=== PATIENT | male | born 1955 | race Caucasian/White ===

== ENCOUNTER → 2018-05-28 | Outpatient (CLI) | payer MEDICARE, OTHER ==
[~2018-05-28] MED LIST: ADULT LOW DOSE81 MG PO; DILTIAZEM 24HR240 MG PO; MEN'S 50+ ADVA1 EACH PO; NOHOMEMEDICATIONS; PREVACID30 M1 PO
== END ==
LOC: M.ULTRA 10:28
DX: R79.89 Other specified abnormal findings of blood chemistry (principal); R19.8 Other specified symptoms and signs involving the digestive system and abdomen

== ENCOUNTER 2020-06-22 11:30 | Observation (INO) | payer MEDICARE, OTHER ==
[~2020-06-22] VITALS: Ht 182.9 cm; Wt 106.6 kg
[2020-06-22] VITALS (17 sets, daily range): BP systolic 128–163; BP diastolic 46–82
[2020-06-22 12:13] LABS: HEMATOCRIT 44.6 % (42.0-52.0); HEMOGLOBIN 14.8 gm/dL (14.0-18.0); MCHC 33.3 g/dL (28.0-37.0); MCV 96.1 fL (80.0-100.0); RBC 4.64 mil/uL (4.50-6.00); RDW-CV 13.7 % (10.5-14.5)
[2020-06-22 12:23] LABS: ANION GAP 6 mmol/L (7-16); BUN 14 mg/dL (7-18); CHLORIDE 102 mmol/L (98-107); CO2 29 mmol/L (21-32); GLUCOSE 96 mg/dL (70-99); POTASSIUM 4.5 mmol/L (3.5-5.1); SODIUM 137 mmol/L (136-145)
[2020-06-22 12:26] LABS: APTT 25.4 Seconds (25.0-31.3); PROTIME 10.3 Seconds (9.20-11.50)
[2020-06-22 12:27] LABS: ALBUMIN 3.9 g/dL (3.4-5.0); ALKALINE PHOSPHATASE 64 U/L (46-116); CHOLESTEROL 183 mg/dL (<200); HDL CHOLESTEROL 52 mg/dL (>40); LDL CHOLESTEROL 111 mg/dL (<100); SGOT 30 U/L (15-37); SGPT 60 U/L (30-65); TC:HDL 3.5 Ratio (Not establshd); TOTAL BILIRUBIN 0.5 mg/dL (<0.1-1.0); TOTAL PROTEIN 7.7 g/dL (6.4-8.2); TRIGLYCERIDE 104 mg/dL (<150); VLDL 21 mg/dL (<40)
[2020-06-22 12:28] LABS: SERUM ASSESSMENT Clear
[2020-06-22] MEDS ORDERED: FLECAINIDE ACET50 M2 PO (12:56)
[2020-06-22] MEDS ORDERED: ZOCOR 10 MG TAB10 MG PO (12:57)
[2020-06-22] MEDS ORDERED: SYNTHROID100 MC1 PO (12:57)
[2020-06-22] MEDS ORDERED: FLOMAX0.4 MG PO (12:58)
[2020-06-22] MEDS ORDERED: MULTIPLE VITAM1 EAC2 PO (12:59)
[2020-06-22] MEDS ORDERED: VERAPAMIL ER120 MG PO (12:59)
--- NOTE | 2020-06-22 14:03 | EKG ---
[place] [address] ELECTROCARDIOGRAM REPORT Name: SNOW WILLIAM Room: [address] M.R.#: [id number] Admission: 06/22/20 Attend Phys: Charles Pitt, Discharge: Date of : 51 Date of Service: 06/22/20 1210 Report #: [id number] THIS REPORT FOR: //name// [facility] Test Date: 2020-06-22 Test Time: 12:10:07 Pat Name: SNOW WILLIAM Department: Room: [facility] Gender: M Consumer Advocate: HENRIK : 1955 Requested By: Charles Pitt Order Number: [id number] Keith MD: Charles Pitt Measurements Intervals [place] Rate: 56 P: 48 ME: 175 QRS: 31 QRSD: 102 T: 28 QT: 449 QTc: 434 Interpretive Statements Sinus rhythm RSR' in V1 or V2, right VCD or RVH Compared to ECG 11/12/2009 15:21:47 Right ventricular hypertrophy now present RSR' in V1 or V2 now present Sinus bradycardia no longer present Electronically Signed On 06-22-2020 14:03:05 SOCIAL SCIENCES PROFESSOR by Charles Pitt [email or web address] <ELECTRONICALLY SIGNED> By: Charles Pitt MD, FACC 06/22/20 1403 1210 1210 Charles Pitt MD, FAC /EPI
--- NOTE | 2020-06-22 16:45 | NUR ---
PT TRANSFERRED FROM COASTAL/HARBOR DEFENSE OFFICER TO ROOM 218 POST STENT X2 THROUGH RIGHT GROIN OUTPATIENT VIA CART. STENTS PLACED IN RCA AND CIRC (2).PT IS ALERT,ABLE TO ANSWER QUESTIONS APPROPRIATELY.DENIES PAIN. VSS WITH ELEVATED BP ON RA. TELE SHOWS SR. SITE TO RIGHT GROIN SOFT,PINK AND WARM TO TOUCH.DRESSING CDI.ASSESSMENT CHARTED. PT EDUCATED ON ACTIVITY,DIET AND CALL LIGHT USE. NOTHING FURTHER AT THIS TIME.CLWR.WCTM
[2020-06-23] VITALS: BP 136/61
--- NOTE | 2020-06-23 03:52 | NUR ---
ASSUMED PT CARE AT [facility]PROX. 1945. PT IS POST PCI CATH. PT HAD TWO STENTS PLACED THROUGH RIGHT GROIN. SITE TO RIGHT GROIN IS SOFT, PINK, AND WARM. SMALL BRUISING NOTED AND IS APPROX. 2MM. PT DENIES C/O AT THIS TIME. DRESSING IS CLEAN, DRY, AND INTACT. VSS. PT IS A/OX4, UP ADLIB WITH BATHROOM PRIVILAGES. PT IS ON TELE MONITOR WHICH REVEALS NSR. PT HAS AN IV IN THE LAC WITH NS FLUIDS RUNNING. PT RESTED DURING THE NIGHT. NO C/O VOICED.
[2020-06-23 03:53] LABS: HEMATOCRIT 41.4 % (42.0-52.0); HEMOGLOBIN 13.9 gm/dL (14.0-18.0); MCHC 33.6 g/dL (28.0-37.0); MCV 95.2 fL (80.0-100.0); MPV 6.9 fl. (7.2-11.1); RBC 4.35 mil/uL (4.50-6.00); RDW-CV 13.8 % (10.5-14.5)
[2020-06-23 04:00] VITALS: BP 188/66
[2020-06-23 04:16] LABS: CALCIUM 8.5 mg/dL (8.5-10.1); POTASSIUM 4.3 mmol/L (3.5-5.1); TROPONIN-I LEVEL 0.14 ng/mL (<0.06)
[2020-06-23 07:30] VITALS: BP 133/67
--- NOTE | 2020-06-23 08:39 | H ---
[facility] [address] [place] [address] HISTORY AND PHYSICAL Name: SNOW WILLIAM Room: [address] Neelima Moreno#: [id number] Admission: 06/22/20 Attend Phys: Charles Pitt MD Discharge: Date of : 51 Report #: [id number] THIS REPORT FOR: cc: Lety Stuart MD, Katrina MD ~ Charles Pitt MD [facility] DATE OF SERVICE: 06/22/2020 INDICATION: Chest pain and abnormal stress test. HISTORY OF PRESENT ILLNESS: The patient is a very pleasant 65-year-old gentleman with history of paroxysmal atrial fibrillation. More recently, he has been having some midsternal and left upper chest discomfort intermittently. A stress test was ordered to evaluate and showed evidence of inferior wall ischemia. He does have preserved left ventricular systolic function. Cardiac risk factors include hyperlipidemia. PAST MEDICAL HISTORY: 1. Paroxysmal atrial fibrillation. 2. Hyperlipidemia. 3. Hypothyroidism. 4. Remote history of finger laceration repair. FAMILY HISTORY: Positive for coronary artery disease in both mother and father. SOCIAL HISTORY: The patient quit smoking remotely. Drinks alcohol occasionally. ALLERGIES: PENICILLIN. HOME MEDICATIONS: Aspirin 81 mg daily, Synthroid 50 mcg daily, multivitamin 1 tablet daily, Zocor 10 mg daily, Flomax 0.4 mg daily, verapamil 120 mg daily. Flecainide 50 mg b.i.d. REVIEW OF SYSTEMS: A 14-point review of systems is positive for fatigue, chest discomfort as outlined above, dyspnea on exertion without orthopnea or paroxysmal nocturnal dyspnea. No bleeding problems. Otherwise, 14-point review of systems unremarkable. PHYSICAL EXAMINATION: VITAL SIGNS: Stable. Blood pressure 124/68, pulse is 60 and regular. GENERAL: This is a pleasant gentleman in no distress. Mood and affect appropriate. HEENT: Extraocular muscles are intact. Mucous membranes are moist. NECK: Shows no jugular venous distention. [place] [address] HISTORY AND PHYSICAL Name: SNOW WILLIAM Room: [address] M.R.#: [id number] Admission: 06/22/20 Attend Phys: Charles Pitt MD Discharge: Date of : 51 Report #: [id number] CHEST: Reveals clear lung madera without wheezes or rales. CARDIOVASCULAR: Reveals a regular rhythm without gallop or murmur. ABDOMEN: Reveals normal bowel sounds. The abdomen is soft and nontender. EXTREMITIES: Shows no edema. Peripheral pulses are 2+ and easily palpable. IMPRESSION AND RECOMMENDATIONS: 1. Chest discomfort concerning for angina with stress testing that suggests inferior wall ischemia. We will proceed with coronary angiography and possible intervention. 2. Dyslipidemia. Recommend goal LDL of 70 or less. 3. Hypothyroidism. Continue replacement as outlined above. <ELECTRONICALLY SIGNED> By: Charles Pitt MD, [facility] 06/23/20 0839 1210 1224Summit Campusgwyn Pitt MD, FACC /nt
--- NOTE | 2020-06-23 09:10 | NUR ---
CM SPOKE TO THE PT TO DISCUSS CM ASSESSMENT. PT A&O, INDEPENDENT WITH ADL'S, ACTIVE AND DRIVES. PT USES 0 DME. PT HAS 0 HX OF HH OR SNF. NO CM D/C PLANNING NEEDS ANTICIPATED. CM WILL REMAIN AVAILABLE TO ASSIST AND FOLLOW NEEDED.
[2020-06-23] MEDS ORDERED: EFFIENT10 MG PO (09:11)
[2020-06-23] MEDS ORDERED: NITROGLYCERIN0.4 MG SUBLING (09:11)
[2020-06-23] MEDS ORDERED: LIPITOR10 MG PO (09:11)
--- NOTE | 2020-06-23 09:59 | EKG ---
[place] [address] ELECTROCARDIOGRAM REPORT Name: SNOW WILLIAM Room: [address] M.R.#: [id number] Admission: 06/22/20 Attend Phys: Charles Pitt, Discharge: Date of : 51 Date of Service: 06/23/20906 Report #: [id number] THIS REPORT FOR: //name// [facility] Test Date: 2020-06-23 Test Time: 09:07:02 Pat Name: SNOW WILLIAM Department: Room: [address] Gender: M Test Administrator: CS : 1955 Requested By: Snow Mckeon Order Number: [id number] Keith MD: Snow Mckeon Measurements Intervals [place] Rate: 67 P: 45 [place]: 160 QRS: 16 QRSD: 104 T: 42 QT: 403 QTc: 426 Interpretive Statements Sinus rhythm RSR' in V1 or V2, right VCD or RVH Compared to ECG 06/22/2020 12:10:07 No significant changes Electronically Signed On 06-23-2020 9:59:36 STORAGE RECEIPT POSTER by Snow Mckeon [email or web address] <ELECTRONICALLY SIGNED> By: Snow Mckeon MD, [facility] 06/23/20 0959 6 6 Snow Mckeon MD, [facility] /EPI
[2020-06-23 11:26] VITALS: BP 133/67
[2020-06-23 11:41] VITALS: BP 133/67
--- NOTE | 2020-06-23 15:27 | EKG ---
[place] [address] ELECTROCARDIOGRAM REPORT Name: SNOW WILLIAM Room: [address]R.#: [id number] Admission: 06/22/20 Attend Phys: Charles Pitt, Discharge: 06/23/20 Date of : 51 Date of Service: 06/22/20 1643 Report #: [id number] THIS REPORT FOR: //name// [facility] Test Date: 2020-06-22 Test Time: 16:43:50 Pat Name: SNOW WILLIAM Department: Room: [address] Gender: M Buggy Driver: ATHOMPSONJessica : 1955 Requested By: Charles Pitt Order Number: [id number] Keith MD: Snow Mckeon Measurements Intervals [place] Rate: 57 P: 36 [place]: 178 QRS: 6 QRSD: 118 T: 23 QT: 445 QTc: 434 Interpretive Statements Sinus rhythm Incomplete right bundle branch block Compared to ECG 06/22/2020 12:10:07 no change Electronically Signed On 06-23-2020 15:27:13 WOOD BOATBUILDER by Snow Mckeon [email or web address] <ELECTRONICALLY SIGNED> By: Snow Mckeon MD, [facility] 06/23/20 1527 1643 1643 Snow Mckeon MD, [facility] /EPI
--- NOTE | 2020-06-24 14:27 | CARD ---
[address] [address] CARDIAC CATH REPORT Name: SNOW WILLIAM Room: [address] Neelima Moreno#: [id number] Admission: 06/22/20 Attend Phys: Charles Pitt MD Discharge: 06/23/20 Date of : 51 Report #: [id number] THIS REPORT FOR: cc: Lety Stuart MD, Katrina MD ~ Snow Mckeon MD [facility] APPROVED REPORT Study performed: 06/22/2020 12:38:01 Patient Details Patient Status: Out-Patient Room #: The patient is a 65 year-old male Event Personnel Julio Verdugo RTR Monitor, Ashlee Lambert RTR Scrub, Shin Whitfield RN RN, Charles Pitt Bed Placement Coordinator, Snow Mckeon Heating Fixture Tender Procedures Performed Left Heart Cath w/or w/o Coronaries LHC, LIYA Place w/wo Plasty Single RCA , LIYA Place w/wo Plasty Single CIRC , Hemostasis w/ Angioseal Indication Arrhythmia, Positive stress test, Chest pain Risk Factors Hypercholesterolemia, Hypertension Admission/Lab Medications/Medications given during procedure Glycoprotein IllbIlla Inhibitors, Heparin Unfract., Fentanyl IV 50 mcg, Midazolam (Versed) IV 2 mg, Lidocaine Subcut 20 ml, Heparin IA 7000 units, Aggrastat Unknown 10.7 ml, Heparin IV 2000 units, Effient PO 60 mg Procedure Narrative The patient was brought electively to the Cardiac Catheterization Laboratory and was prepped and draped in a sterile manner. The right femoral was infiltrated with 2% Lidocaine subcutaneous anesthesia. A Hubbell 6 FR sheath was inserted into the right femoral artery. Coronary angiography was performed using coronary diagnostic catheters. The right coronary system [place] [address] CARDIAC CATH REPORT Name: SNOW WILLIAM Room: [address] Tiffanie#: [id number] Admission: 06/22/20 Attend Phys: Charles Pitt MD Discharge: 06/23/20 Date of : 51 Report #: [id number] a Diagnostic JR4 6Fr catheter. The left coronary system was accessed and visualized with a Diagnostic JL4 6Fr catheter. The left ventricle was accessed and visualized with a Diagnostic Pigtail 6Fr catheter. Left ventricular/Aortic Valve gradient assessed via catheter pullback. Left ventriculogram was performed in SWAIN projection. Closure device was deployed with a 6 Fr Angioseal. The patient tolerated the procedure well and there were no complications associated with the procedure. There was no hematoma. Intraoperative Conscious Sedation Sedation start time: 13:08 Case end Time: 14:13 Fentanyl 50 mcg Versed 2 mg Fluoro Time: 7.1 minutes Dose: DAP 867299 cGycm2 1880 mGy Contrast Type and Amount: Visipaque 210 ml Diagnostic Cath Left Main The left main coronary artery is normal and bifurcates into a left anterior descending and circumflex coronary artery. LAD The left anterior descending coronary artery has an 80% narrowing at the takeoff of the first diagonal branch. Diagonal 1 The first diagonal branch appears to be free of significant disease. Diagonal 2 The second diagonal branch is free of significant disease. Circumflex The distal circumflex has a focal 90% narrowing. OM1 A small in caliber first obtuse marginal branch is free of significant disease. OM2 A moderate to small in caliber second obtuse marginal branch is free of significant disease. OM3 A moderate sized third obtuse marginal branch is free of significant disease. Right Coronary The right coronary artery has a focal 95% narrowing in its midportion. R PDA The right PDA is free of significant disease. RPLV The right posterior lateral LV branch is free of significant disease. Left Ventriculography The left ventricle is normal in size with normal contractility. The left ventricular ejection fraction is estimated to be 55-60%. [place] [address] CARDIAC CATH REPORT Name: SNOW WILLIAM Room: [address] MSammyRSammy#: [id number] Admission: 06/22/20 Attend Phys: Charles Pitt MD Discharge: 06/23/20 Date of : 51 Report #: [id number] Hemodynamics The aortic pressure is 154/82 mmHg with a mean of 49 mmHg. The left ventricular pressure is 144/8 mmHg with a mean of mmHg. The left ventricular end diastolic pressure is 19 mmHg. PCI Technique Lesion Anticoagulation was achieved with Heparin. bolus of iv aggrastat given Percutaneous coronary intervention was performed on the mid right coronary artery. The lesion stenosis prior to intervention was 95% with GURJIT 3 flow. A 6FR JCR 4 100CM Guide Catheter was used to engage the Right ostium. A BMW 190cm Interventional Guidewire was used to cross the lesion. BALLOON DILATION A Balloon catheter Euphora SC 2.5x10 was inserted and inflated up to 12.00atm for 15seconds. Repeat angiography revealed the following post-dilatation results: 40% stenosis. Additional Inflation: 12.00atm for 10seconds. Additional Inflation: 10.00atm for 15seconds. STENT DEPLOYMENT A drug-eluting stent Sukh RX Stent 2.79L38ex was inserted and inflated up to 10.00atm for 15seconds. Repeat angiography revealed the following post-stent deployment results: 0% stenosis. Additional Inflation: 11.00atm for 10seconds. Additional Inflation: 18.00atm for 20seconds. Final angiography reveals 0 % stenosis with GURJIT 3 flow. PCI Technique Lesion 2 Percutaneous Coronary Intervention was performed on the distal circumflex artery segment. Percutaneous coronary intervention was performed on the distal circumflex artery segment. The lesion stenosis prior to intervention was 90% with GURJIT 3 flow. A 6F XB 4.0 Guide Catheter was used to engage the Left ostium. A BMW 190cm Interventional Guidewire was used to cross the lesion. Balloon Dilation A Balloon catheter Euphora SC 2.5x10 was inserted and inflated up to 8.00atm for 10seconds. Repeat angiography revealed the following post-dilatation results: 30% stenosis. Stent Deployment A drug-eluting stent Sukh RX Stent 2.5X12mm was inserted and inflated up to 9.00atm for 15seconds. Repeat angiography revealed the following post-stent deployment results: 0% stenosis. Additional [address] [address] CARDIAC CATH REPORT Name: SNOW WILLIAM Room: [address] Neelima LuongSammy#: [id number] Admission: 06/22/20 Attend Phys: Charles Pitt MD Discharge: 06/23/20 Date of : 51 Report #: [id number] Inflation: 11.00atm for 15seconds. Final angiography reveals 0 % stenosis with GURJIT 3 flow. Conclusion A. Three-vessel coronary artery disease as outlined above B. Mildly elevated left ventricular end-diastolic pressure C. Normal left ventricular systolic function. 1. successful placement of drug eluting stents in the mid RCA and distal circumflex artery. Recommendations Aggressive risk factor modification. If recurrent angina despite medications, consider stenting of the proximal LAD. Medications Administered Prasugrel Diagnostic Cath Approved by: Charles Pitt MD Date/Time: <ELECTRONICALLY SIGNED> By: Snow Mckeon MD, [facility] 06/24/20 1426 1426 1426Daviene Mckeon MD, [facility] /INF
--- NOTE | 2020-06-24 14:54 | D ---
[address] [address] DISCHARGE SUMMARY Name: SNOW WILLIAM Room: [address] Neelima Moreno#: [id number] Admission: 06/22/20 Attend Phys: Charles Pitt MD Discharge: 06/23/20 Date of : 51 Report #: [id number] THIS REPORT FOR: cc: Lety Stuart MD, Katrina MD ~ Charles Pitt MD [facility] CARDIOLOGY DISCHARGE SUMMARY DISCHARGE DIAGNOSES: 1. Unstable angina. 2. Coronary artery disease. 3. Hyperlipidemia. 4. Hypothyroidism. PROCEDURES DURING HOSPITALIZATION: 1. Coronary angiography. 2. Left heart catheterization. 3. Left ventriculography. 4. Percutaneous coronary intervention to the mid right coronary artery and distal circumflex coronary artery. HOSPITAL COURSE: The patient was brought to the hospital for elective cardiac catheterization after having an abnormal stress test suggesting inducible ischemia. He was found to have significant stenoses involving the right coronary artery, circumflex and left anterior descending coronary artery. The patient had a mid right coronary stenosis of 90% that he received a drug-eluting stent for with 0% residual stenosis. There was also a 90% stenosis in the distal circumflex for which he had a drug-eluting stent placed with 0% stenosis noted. The patient has a residual 70% stenosis in the left anterior descending coronary artery for which there are plans to bring the patient back to the hospital for a staged procedure. The patient tolerated the procedure well without complication. DISCHARGE MEDICATIONS: Will include aspirin 81 mg daily, Effient 10 mg daily, verapamil 180 mg daily, flecainide 50 mg b.i.d., atorvastatin 40 mg daily, Nitrostat sublingual p.r.n., Flomax 0.4 mg daily, Synthroid 50 mcg daily, multivitamin 1 tablet daily. DISPOSITION: The patient will be brought back to the hospital in 2 weeks for a staged procedure. <ELECTRONICALLY SIGNED> By: Charles Pitt MD, FACC 06/24/20 1454 0916 1015Micgwyn Pitt MD, FACC /nt
== END 2020-06-23 13:01 | disposition home or self-care (01) ==
LOC: M.CL 11:30 → M.TBA-CV 13:34 → M.2W 16:18
PROVIDERS: Internal Medicine Cardiovascular Disease; ADMIT Internal Medicine Cardiovascular Disease; ATTEND Internal Medicine Cardiovascular Disease
DX: I25.110 Atherosclerotic heart disease of native coronary artery with unstable angina pectoris (principal); E78.5 Hyperlipidemia, unspecified; I48.0 Paroxysmal atrial fibrillation; E03.9 Hypothyroidism, unspecified; Z79.82 Long term (current) use of aspirin; Z79.899 Other long term (current) drug therapy; Z20.828 Contact with and (suspected) exposure to other viral communicable diseases

== ENCOUNTER 2020-07-13 09:22 | Observation (INO) | payer MEDICARE, OTHER ==
[2020-07-13] VITALS (15 sets, daily range): BP systolic 106–1308; BP diastolic 41–82
[~2020-07-13] VITALS: Ht 182.9 cm; Wt 107.5 kg
--- NOTE | ~2020-07-13 | D ---
[address] [address] DISCHARGE SUMMARY Name: SNOW WILLIAM Room: [address] Neelima MSammyRSammy#: [id number] Admission: 07/13/20 Attend Phys: Charles Pitt MD Discharge: Date of : 51 Report #: [id number] THIS REPORT FOR: cc: Lety Stuart MD, Katrina MD ~ Charles Pitt MD [facility] DATE OF SERVICE: 07/14/2020 DISCHARGE DIAGNOSES: 1. Coronary artery disease. 2. Unstable angina. 3. Percutaneous coronary intervention. 4. Paroxysmal atrial fibrillation. 5. Hypothyroidism. 6. Hyperlipidemia. PROCEDURES DURING THE HOSPITALIZATION: 1. Coronary angiography. 2. Percutaneous coronary intervention with stent placement to the proximal LAD. Percutaneous coronary intervention with drug-eluting stent placement to the mid circumflex. Percutaneous coronary intervention with drug-eluting stent placement to the proximal right coronary artery. HOSPITAL COURSE: The patient was brought to the cardiac catheterization lab for staged procedure with percutaneous coronary intervention to the left anterior descending coronary artery. The patient had a drug-eluting stent placed at the site of a 70% stenosis with excellent result. At that time, it was noted that there was moderate disease proximal to previously placed stents in the circumflex and right coronary artery for which he had additional drug-eluting stents placed. The patient tolerated the procedure well and without complication. He is being discharged uneventfully. DISCHARGE MEDICATIONS: Will include aspirin 81 mg daily, Effient 10 mg daily, atorvastatin 40 mg daily, flecainide 50 mg b.i.d., levothyroxine 0.05 mg daily, multivitamin 1 tablet daily, Nitrostat sublingual p.r.n., and verapamil 180 mg b.i.d. DISPOSITION: The patient will follow up in the Cardiology office in 2 weeks. By: 0925 0932Charles Pitt MD, FACC /nt
[~2020-07-13 09:22] MED LIST changes: +EFFIENT10 MG PO; +FLECAINIDE ACET50 M2 PO; +FLOMAX0.4 MG PO; +LIPITOR10 MG PO; +LIPITOR40 MG PO; +MULTIPLE VITAM1 EAC2 PO; +NITROGLYCERIN0.4 MG SUBLING; +SYNTHROID100 MC1 PO; +VERAPAMIL ER120 MG PO; +VERAPAMIL ER180 M1 PO; +ZOCOR 10 MG TAB10 MG PO
[2020-07-13 09:50] LABS: HEMATOCRIT 42.9 % (42.0-52.0); HEMOGLOBIN 14.5 gm/dL (14.0-18.0); MCH 32.2 pg (26.0-34.0); MCHC 33.7 g/dL (28.0-37.0); MCV 95.4 fL (80.0-100.0); MPV 6.9 fl. (7.2-11.1); RBC 4.49 mil/uL (4.50-6.00); RDW-CV 13.8 % (10.5-14.5); WBC 7.5 thou/uL (4.0-11.0)
[2020-07-13 10:01] LABS: APTT 26.1 Seconds (25.0-31.3); PROTIME 10.5 Seconds (9.20-11.50)
[2020-07-13 10:02] LABS: ALKALINE PHOSPHATASE 71 U/L (46-116); ANION GAP 9 mmol/L (7-16); BUN 13 mg/dL (7-18); CALCIUM 8.6 mg/dL (8.5-10.1); CHLORIDE 103 mmol/L (98-107); CHOLESTEROL 122 mg/dL (<200); CO2 25 mmol/L (21-32); CREATININE 0.9 mg/dL (0.6-1.3); GLUCOSE 102 mg/dL (70-99); HDL CHOLESTEROL 52 mg/dL (>40); LDL CHOLESTEROL 53 mg/dL (<100); POTASSIUM 4.4 mmol/L (3.5-5.1); SERUM ASSESSMENT Clear; SGOT 39 U/L (15-37); SGPT 61 U/L (30-65); SODIUM 137 mmol/L (136-145); TC:HDL 2.3 Ratio (Not establshd); TOTAL BILIRUBIN 0.6 mg/dL (<0.1-1.0); TOTAL PROTEIN 7.6 g/dL (6.4-8.2); TRIGLYCERIDE 88 mg/dL (<150); VLDL 18 mg/dL (<40)
--- NOTE | 2020-07-13 16:20 | EKG ---
[place] [address] ELECTROCARDIOGRAM REPORT Name: STEAWRTSNOW HECTOR Room: [address]R.#: [id number] Admission: 07/13/20 Attend Phys: Charles Pitt, Discharge: Date of : 51 Date of Service: 07/13/20 1056 Report #: [id number] THIS REPORT FOR: //name// [facility] Test Date: 2020-07-13 Test Time: 10:56:24 Pat Name: SNOW WILLIAM Department: Room: [facility] Gender: M Wedger: : 1955 Requested By: Charles Pitt Order Number: [id number] Reading MD: Ammon Campos Measurements Intervals [place] Rate: 48 P: 34 [place]: 168 QRS: 25 QRSD: 114 T: 17 QT: 460 QTc: 411 Interpretive Statements Sinus bradycardia Incomplete right bundle branch block Compared to ECG 06/23/2020 09:07:02 Incomplete right bundle-branch block now present Sinus rate has decreased Electronically Signed On 07-13-2020 16:20:19 SURPLUS PROPERTY DISPOSAL AGENT by Ammon Campos [email or web address] <ELECTRONICALLY SIGNED> By: Ammon Campos MD, [facility] 07/13/20 1620 1056 1056 Ammon Campos MD, [facility] /EPI
--- NOTE | 2020-07-13 16:21 | EKG ---
[place] [address] ELECTROCARDIOGRAM REPORT Name: STEWARTSNOW HECTOR Room: [address] M.R.#: [id number] Admission: 07/13/20 Attend Phys: Charles Pitt, Discharge: Date of : 51 Date of Service: 07/13/20 1251 Report #: [id number] THIS REPORT FOR: //name// [facility] Test Date: 2020-07-13 Test Time: 12:51:03 Pat Name: SNOW WILLIAM Department: Room: [facility] Gender: M Pile Driving Technician: : 1955 Requested By: Charles Pitt Order Number: [id number] Reading MD: Ammon Campos Measurements Intervals [place] Rate: 50 P: 49 [place]: 171 QRS: 41 QRSD: 109 T: 33 QT: 474 QTc: 433 Interpretive Statements Sinus rhythm RSR' in V1 or V2, right VCD Compared to ECG 07/13/2020 10:56:24 RSR' in V1 or V2 persists Sinus bradycardia no longer present Electronically Signed On 07-13-2020 16:21:09 ABA THERAPIST by Ammon Campos [email or web address] <ELECTRONICALLY SIGNED> By: Ammon Campos MD, [facility] 07/13/20 1621 1251 1251 Ammon Campos MD, [facility] /EPI
--- NOTE | 2020-07-13 18:30 | NUR ---
RECEIVED REPORT FROM PHOTO RETOUCHER. PT ARRIVED TO TELE FLOOR AROUND 1348. ASSUMED CARE. ASSESSMENT CHARTED. ADMISISON HISTORY COMPLETED BY PHOTO RETOUCHER. MEDS PER EMAR. RIGHT GROIN DCI. PT UP AT 1830 FROM POST CATH IMMOBILIZATION, NO CONCERNS. CALL LIGHT WITHIN REACH. FALL PRECATUTIONS IN PLACE.
[2020-07-14] VITALS: BP 122/59
[2020-07-14 04:00] VITALS: BP 150/68
[2020-07-14 06:12] LABS: ALBUMIN 3.4 g/dL (3.4-5.0); CALCIUM 8.6 mg/dL (8.5-10.1); CREATININE 0.9 mg/dL (0.6-1.3); POTASSIUM 4.1 mmol/L (3.5-5.1); TOTAL BILIRUBIN 0.7 mg/dL (<0.1-1.0); TOTAL PROTEIN 6.7 g/dL (6.4-8.2)
[2020-07-14 06:16] LABS: HEMATOCRIT 41.1 % (42.0-52.0); HEMOGLOBIN 13.8 gm/dL (14.0-18.0); MCHC 33.5 g/dL (28.0-37.0); MCV 95.5 fL (80.0-100.0); MPV 7.4 fl. (7.2-11.1); RBC 4.3 mil/uL (4.50-6.00); RDW-CV 13.4 % (10.5-14.5); WBC 7.6 thou/uL (4.0-11.0)
[2020-07-14 08:02] VITALS: BP 112/59
--- NOTE | 2020-07-14 09:55 | CARD ---
[address] [address] CARDIAC CATH REPORT Name: SNOW WILLIAM Room: [address] Neelima M.R.#: [id number] Admission: 07/13/20 Attend Phys: Charles Pitt MD Discharge: Date of : 51 Report #: [id number] THIS REPORT FOR: cc: Lety Stuart MD, Katrina MD ~ Ammon Campos MD [facility] APPROVED REPORT Study performed: 07/13/2020 10:23:47 Patient Details Patient Status: Out-Patient Room #: The patient is a 65 year-old male Event Personnel Charles Pitt Access Control Officer, Shin Whitfield RN Grocery Clerk, Kevin AgostoIS Scrub, Jany Bello RTR Monitor, Ammon Campos Software Development Project Manager, Julio Verdugo RTR Monitor Procedures Performed Right femoral artery access, Left Heart Cath w/or w/o Coronaries LHC, LIYA Place w/wo Plasty Single CIRC , LIYA Place w/wo Plasty Single LAD, LIYA Place w/wo Plasty Single RCA , Hemostasis w/ Angioseal Indication Unstable angina Risk Factors Hypercholesterolemia, Hypertension Admission/Lab Medications/Medications given during procedure Oxygen Nasal cannula 2 l per min, Lidocaine Subcut 20 ml, Midazolam (Versed) IV 1 mg, Fentanyl IV 25 mcg, Angiomax IV 16 ml, Angiomax Drip IV 37.69 ml per hr, Effient PO 30 mg Procedure Narrative The patient was brought electively to the Cardiac Catheterization Laboratory and was prepped and draped in a sterile manner. The right femoral was infiltrated with 2% Lidocaine subcutaneous anesthesia. A [place] 6 FR sheath was inserted into the right femoral artery. Coronary angiography was performed using coronary diagnostic catheters. The right coronary system was accessed and visualized with a JR4 6Fr catheter. The left [place] [address] CARDIAC CATH REPORT Name: SNOW WILLIAM Room: [address] M.R.#: [id number] Admission: 07/13/20 Attend Phys: Charles Pitt MD Discharge: Date of : 51 Report #: [id number] visualized with a JL4 6Fr catheter. The left ventricle was accessed and visualized with a Pigtail 6Fr catheter. Left ventricular/Aortic Valve gradient assessed via catheter pullback. Pre-demployment femoral angiogram was performed . Closure device was deployed with a 6 Fr Angioseal. The patient tolerated the procedure well and there were no complications associated with the procedure. There was no hematoma. Intraoperative Conscious Sedation Sedation start time: 11:18 Case end Time: 12:19 Fentanyl 25 mcg Versed 1 mg Fluoro Time: 20.3 minutes Dose: DAP 497462 cGycm2 3358.08 mGy Contrast Type and Amount: Visipaque 360 ml Diagnostic Cath Left Main 0% narrowing LAD 90% proximal LAD stenosis Circumflex 75% irregular mid circumflex narrowing followed by widely patent distal circumflex stent Right Coronary Dominant vessel with 80% proximal narrowing followed by widely patent mid right coronary stent followed by a 40% narrowing at the acute margin Left Ventriculography Left Ventriculography was not performed. Hemodynamics The aortic pressure is 133/60 mmHg with a mean of 72 mmHg. The left ventricular pressure is 144/10 mmHg with a mean of mmHg. The left ventricular end diastolic pressure is 24 mmHg. There was no gradient across the aortic valve upon pullback. PCI Technique Lesion Anticoagulation was achieved with Angiomax. Patient was preloaded with Angiomax IV 16 ml. Percutaneous coronary intervention was performed on the proximal left anterior descending artery segment. The lesion stenosis prior to intervention was 90% with GURJIT 3 flow. A 6F XB LAD 3.5 Guide Catheter was used to engage the Left ostium. A ProwaterFlex 180CM Interventional Guidewire was used to cross the [place] [address] CARDIAC CATH REPORT Name: SNOW WILLIAM Room: [address] M.R.#: [id number] Admission: 07/13/20 Attend Phys: Charles Pitt MD Discharge: Date of : 51 Report #: [id number] A Balloon catheter NC Trek RX 2.5 X 8 was inserted and inflated up to 12.00atm for 11seconds. Additional Inflation: 18.00atm for 7seconds. STENT DEPLOYMENT A drug-eluting stent Sukh RX Stent 2.5X12mm was inserted and inflated up to 10.00atm for 7seconds. Additional Inflation: 14.00atm for 11seconds. Additional Inflation: 16.00atm for 10seconds. Final angiography reveals 10 % stenosis with GURJIT 3 flow. PCI Technique Lesion 2 Percutaneous Coronary Intervention was performed on the mid circumflex artery segment. Patient was preloaded with Angiomax IV 16 ml. The lesion stenosis prior to intervention was 75% with GURJIT 3 flow. A 6F XB LAD 3.5 Guide Catheter was used to engage the Left ostium. A ProwaterFlex 180CM Interventional Guidewire was used to cross the lesion. Balloon Dilation A Balloon catheter NC Euphora 2.25x 12 was inserted and inflated up to 20.00atm for 18seconds. Additional Inflation: 26.00atm for 15seconds. Stent Deployment A drug-eluting stent Sukh RX Stent 2.35X74ec was inserted and inflated up to 12.00atm for 10seconds. Additional Inflation: 14.00atm for 12seconds. Post Stent Deployment Balloon Dilation A Balloon catheter NC Trek RX 2.5 X 8 was inserted and inflated up to 16.00atm for 12seconds. Additional Inflation: 18.00atm for 8seconds. Final angiography reveals 10 % stenosis with GURJIT 3 flow. PCI Technique Lesion 3 Percutaneous Coronary Intervention was performed on the proximal right coronary artery. Patient was preloaded with Angiomax IV 16 ml. The lesion stenosis prior to intervention was 80% with GURJIT 3 flow. A 6F JR 4.0 Guide Catheter was used to engage the Right ostium. A ProwaterFlex 180CM Interventional Guidewire was used to cross the [place] [address] CARDIAC CATH REPORT Name: SNOW WILLIAM Room: [address] Neelima Luong.#: [id number] Admission: 07/13/20 Attend Phys: Charles Pitt MD Discharge: Date of : 51 Report #: [id number] A Balloon catheter NC Euphora 2.25x 12 was inserted and inflated up to 24.00atm for 16seconds. Stent Deployment A drug-eluting stent Sukh RX Stent 2.86L81tr was inserted and inflated up to 10.00atm for 8seconds. Additional Inflation: 14.00atm for 8seconds. Additional Inflation: 16.00atm for 7seconds. Final angiography reveals 0 % stenosis with GURJIT 3 flow. Conclusion 1. Significant multivessel coronary artery disease characterized by the following: A 90% proximal LAD stenosis involving the takeoff of the first diagonal branch B 75% irregular mid circumflex stenosis followed by a widely patent distal circumflex stent C 80% proximal right coronary narrowing followed by widely patent mid right coronary stent followed by 40% acute marginal narrowing 2. Moderate elevation of left ventricular end-diastolic pressure at rest 3. Successful PCI with deployment of drug-eluting stent at site of 90% proximal LAD stenosis with 10% residual narrowing and GURJIT-3 flow to the distal vessel 4. Successful PCI with deployment of drug-eluting stent at site of 75% mid circumflex stenosis with 10% residual narrowing and GURJIT-3 flow to the distal vessel 5. Successful PCI with deployment of drug-eluting stent at the site of 80% proximal right coronary stenosis with 0% residual narrowing and GURJIT-3 flow to the distal vessel Recommendations Cardiac Risk Reduction Program Aggressive Medical Therapy Medications Administered Prasugrel [facility] [address] [place] [address] CARDIAC CATH REPORT Name: SNOW WILLIAM Room: [address] [facility] Neelima Moreno#: [id number] Admission: 07/13/20 Attend Phys: Charles Pitt MD Discharge: Date of : 51 Report #: [id number] Diagnostic Cath Approved by: Charles Pitt MD Date/Time: 07/14/2020 09:53:16 <ELECTRONICALLY SIGNED> By: Ammon Campos MD, FACC 07/14/20 0955 [id number] 0955Ammon Campos MD, FACC /INF
--- NOTE | 2020-07-14 09:57 | NUR ---
ASSUMED CARE OF PT THIS AM AROUND 0715- COMMUNITY ARTIST IN PLACE ORDERED, TRACING SR/SB- UPON ASSESSMENT PT NOTED TO BE RESTING IN BED, WATCHING TV- PT A&OX4- CONT OF BOWEL AND BLADDER- UP AD-MARY IN ROOM, STEADY GAIT NOTED- LCTA, RESP EVEN AND UN-LABORED- VSS, O2 SAT 96% ON RA- ABD SOFT/ROUND/NON-TENDER, BS X4 QUADS- LAST BM REPORTED 07/13/20- IV NOTED TO LEFT AC INTACT AND SL- RIGHT GROIN SIGHT C/D/I, BRUISING NOTED BUT NO HEMATOMA- PT DENIES ANY C/O PAIN/DISCOMFORT AT THIS TIME- CALL LIGHT AND PERSONAL BELONGINGS WITH IN REACH- ALL NEEDS MET AT THIS TIME
[2020-07-14 10:57] VITALS: BP 112/59
[2020-07-14] MEDS ORDERED: ADULT LOW DOSE81 MG PO (11:18)
[2020-07-14] MEDS ORDERED: NITROGLYCERIN0.4 MG SUBLING (11:18)
[2020-07-14] MEDS ORDERED: VERAPAMIL ER180 M1 PO (11:18)
[2020-07-14 11:40] VITALS: BP 112/59
--- NOTE | 2020-07-14 15:27 | EKG ---
[place] [address] ELECTROCARDIOGRAM REPORT Name: STEWARTSNOW HECTOR Room: [address] M.R.#: [id number] Admission: 07/13/20 Attend Phys: Charles Pitt, Discharge: 07/14/20 Date of : 51 Date of Service: 07/14/20 0911 Report #: [id number] THIS REPORT FOR: //name// [facility] Test Date: 2020-07-14 Test Time: 09:11:24 Pat Name: SNOW WILLIAM Department: Room: [facility] Gender: M General Handling Supervisor: : 1955 Requested By: Charles Pitt Order Number: [id number] Keith MD: Ammon Campos Measurements Intervals [place] Rate: 62 P: 45 MT: 163 QRS: 21 QRSD: 105 T: 36 QT: 409 QTc: 416 Interpretive Statements Sinus rhythm RSR' in V1 or V2, right VCD Compared to ECG 07/13/2020 12:51:03 Minor IVCD of the right type persists Electronically Signed On 07-14-2020 15:27:23 PERL PROGRAMMER by Ammon Campos [email or web address] <ELECTRONICALLY SIGNED> By: Ammon Campos MD, [facility] 07/14/20 1527 0911 0911 Ammon Campos MD, [facility] /EPI
== END 2020-07-14 11:41 | disposition home or self-care (01) ==
LOC: M.CL 09:22 → M.TBA-CV 12:28 → M.2W 14:29
PROVIDERS: ADMIT Internal Medicine Cardiovascular Disease; ATTEND Internal Medicine Cardiovascular Disease
DX: I25.110 Atherosclerotic heart disease of native coronary artery with unstable angina pectoris (principal); Z20.828 Contact with and (suspected) exposure to other viral communicable diseases; I48.0 Paroxysmal atrial fibrillation; E03.9 Hypothyroidism, unspecified; E78.5 Hyperlipidemia, unspecified

== ENCOUNTER → 2020-08-19 | Outpatient (CLI) | payer MEDICARE, OTHER ==
[2020-08-19] VITALS (11 sets, daily range): BP systolic 103–135; BP diastolic 50–77
--- NOTE | 2020-08-19 12:54 | TEE ---
[place] [address] TRANSESOPHAGEAL ECHOCARDIOGRAM Name: SNOW WILLIAM Room: [facility]#: [id number] Admission: 08/19/20 Attend Phys: Charles Pitt, Discharge: Date of : 51 Date of Service: 08/19/20 1254 Report #: [id number] THIS REPORT FOR: cc: Lety Stuart MD, Katrina MD Liston, Michael J. MD [facility] ~ APPROVED REPORT Study performed: 08/19/2020 09:53:13 EXAM: Transesophageal Echocardiogram Patient Location: Out-Patient Status: routine BSA: 2.26 HR: 59 bpm BP: 129/77 mmHg Rhythm: NSR Other Information Study Quality: Good Indications Atrial Fibrillation Echo Enhancing Agent Indication: Rule out Shunt Agent(s) / Amount(s) Used: Agitated Saline 10 cc Procedure After obtaining informed consent, patient underwent transesophageal echo in the [employer]. Type of Sedation : Conscious Sedation Sedation was administered by Shin Whitfield RN. Sedation start time: 1000 Case end Time: 1008 Sedation was achieved intravenously with: Versed (3) Fentanyl (75) Transesophageal probe was inserted and advanced into esophagus without difficulty by Charles Pitt MD, FACC. Echo enhancement indication: R/O Septal defect. Echo enhancement agent administered: Agitated Saline The SABRA was performed without complications. Throughout the procedure, the blood pressure, pulse oximetry, cardiac rhythm, and rate were monitored. The patient tolerated the procedure without [place] [address] TRANSESOPHAGEAL ECHOCARDIOGRAM Name: SNOW WILLIAM Room: [facility] ANN Tiffanie#: [id number] Admission: 08/19/20 Attend Phys: Charles Pitt, Discharge: Date of : 51 Date of Service: 08/19/20 1254 Report #: [id number] from conscious sedation was uneventful and vital signs were stable. Left Ventricle The left ventricle is normal size. There is normal LV segmental wall motion. There is normal left ventricular wall thickness. Left ventricular systolic function is normal. LVEF is 55-60%. Right Ventricle The right ventricle is normal size. The right ventricular systolic function is normal. Atria The left atrium size is normal. No thrombus is visualized in the left atrium or appendage. The interatrial septum is intact with no evidence for an atrial septal defect. The right atrium size is normal. Aortic Valve The aortic valve is normal in structure. No aortic regurgitation is present. There is no aortic valvular stenosis. Mitral Valve The mitral valve is normal in structure. Trace mitral regurgitation. No evidence of mitral valve stenosis. Tricuspid Valve The tricuspid valve is normal in structure. Trace tricuspid regurgitation. Pulmonic Valve The pulmonary valve is normal in structure. There is no pulmonic valvular regurgitation. Great Vessels The aortic root is normal in size. Pericardium There is no pericardial effusion. <Conclusion> The left ventricle is normal size. There is normal left ventricular wall thickness. Left ventricular systolic function is normal. LVEF is 55-60%. There is normal LV [place] [address] TRANSESOPHAGEAL ECHOCARDIOGRAM Name: STEWARTSNOW HECTOR Room: [facility]#: [id number] Admission: 08/19/20 Attend Phys: Charles Pitt, Discharge: Date of : 51 Date of Service: 08/19/20 1254 Report #: [id number] The interatrial septum is intact with no evidence for an atrial septal defect. The left atrium size is normal. No thrombus is visualized in the left atrium or appendage. <ELECTRONICALLY SIGNED> By: Charles Pitt MD, FACC 08/19/20 1254 1254 125 Charles Pitt MD, FACC /INF
== END | disposition home or self-care (01) ==
LOC: M.CL 08-16 10:00
PROVIDERS: ATTEND Internal Medicine Cardiovascular Disease
DX: I48.91 Unspecified atrial fibrillation (principal); I08.1 Rheumatic disorders of both mitral and tricuspid valves; E78.5 Hyperlipidemia, unspecified; E03.9 Hypothyroidism, unspecified; M06.9 Rheumatoid arthritis, unspecified; Z98.890 Other specified postprocedural states; Z79.899 Other long term (current) drug therapy; Z88.0 Allergy status to penicillin

== ENCOUNTER → 2020-10-20 | Outpatient (CLI) | payer MEDICARE, OTHER | LOC: M.ULTRA 06:57 | PROVIDERS: ATTEND Family Medicine | DX: K76.0 Fatty (change of) liver, not elsewhere classified (principal); K76.89 Other specified diseases of liver ==

== ENCOUNTER → 2020-12-21 | Outpatient (CLI) | payer MEDICARE, OTHER ==
[2020-12-21 10:37] VITALS: BP 120/53; BP 130/53
[2020-12-21 11:46] VITALS: BP 133/66
[2020-12-21 12:29] VITALS: BP 124/73
--- NOTE | 2020-12-26 12:44 | CARD ---
[address] [address] CARDIAC CATH REPORT Name: SNOW WILLIAM Room: [facility]..#: [id number] Admission: 12/21/20 Attend Phys: Charles Pitt MD Discharge: Date of : 51 Report #: [id number] THIS REPORT FOR: cc: Lety Stuart MD, Katrina MD Liston, Michael J. MD [facility] ~ DATE OF SERVICE: 12/21/2020 INDICATION: Paroxysmal atrial fibrillation, status post ablation. PROCEDURE: Implantable loop recorder placement. DESCRIPTION OF PROCEDURE: After informed consent was obtained, the area of the chest was prepped and draped in sterile fashion. The fourth intercostal space, left of the sternum was identified. Local anesthesia was achieved with 1% lidocaine. Next, a small incision was made in the 4th intercostal space just lateral to the left sternum with the provided blade. After the initial incision was made, the [employer]ot[employer]ik BioMonitor 3 loop recorder was implanted using the provided applicator. The skin incision was then closed with Dermabond. The patient tolerated the procedure well and without complication. The sensed R-wave was 0.88. IMPRESSION: 1. Paroxysmal atrial fibrillation, status post ablation. 2. Successful implantation of a loop recorder. <ELECTRONICALLY SIGNED> By: Charles Pitt MD, [facility] 12/26/20 1244 1247 2038Badger Jessica Pitt MD, DENISE /nt
== END | disposition home or self-care (01) ==
LOC: M.CL 10:08
PROVIDERS: ATTEND Internal Medicine Cardiovascular Disease
DX: I48.0 Paroxysmal atrial fibrillation (principal); Z79.899 Other long term (current) drug therapy; Z88.0 Allergy status to penicillin; Z79.01 Long term (current) use of anticoagulants

== ENCOUNTER → 2021-06-30 | Outpatient (CLI) | payer MEDICARE, OTHER ==
[2021-06-30 07:22] LABS: ABSOLUTE BASOPHILS 0.1 thou/uL (0.0-0.2); ABSOLUTE EOSINOPHILS 0.2 thou/uL (0.0-0.7); ABSOLUTE LYMPHOCYTES 1.1 thou/uL (0.8-5.3); ABSOLUTE MONOCYTES 0.6 thou/uL (0.0-1.2); ABSOLUTE NEUTROPHILS 3.6 thou/uL (1.6-8.1); BASOPHILS 1.4 %; EOSINOPHILS 4.3 %; HEMATOCRIT 42.3 % (42.0-52.0); HEMOGLOBIN 14.4 gm/dL (14.0-18.0); LYMPHOCYTES 19.9 %; MCH 32.1 pg (26.0-34.0); MCV 94.6 fL (80.0-100.0); MONOCYTES 9.8 %; NUCLEATED RBCS 0 /100WBC; PLATELET COUNT* 235 thou/uL (150-400); POLYS 64.6 %; RBC 4.47 mil/uL (4.50-6.00); RDW-CV 13.8 % (10.5-14.5); WBC 5.6 thou/uL (4.0-11.0)
[2021-06-30 07:31] LABS: ALBUMIN 3.6 g/dL (3.4-5.0); CALCIUM 8.5 mg/dL (8.5-10.1); POTASSIUM 4.5 mmol/L (3.5-5.1); TOTAL BILIRUBIN 0.7 mg/dL (<0.1-1.0); TOTAL PROTEIN 7.5 g/dL (6.4-8.2)
[2021-06-30 08:44] LABS: ESR (SEDRATE) 10 mm/hr (0-20)
== END ==
LOC: M.MRI 06:39
PROVIDERS: ATTEND Psychiatry & Neurology Neuromuscular Medicine
DX: M51.16 Intervertebral disc disorders with radiculopathy, lumbar region (principal); M48.061 Spinal stenosis, lumbar region without neurogenic claudication; M47.16 Other spondylosis with myelopathy, lumbar region; M47.27 Other spondylosis with radiculopathy, lumbosacral region; M48.07 Spinal stenosis, lumbosacral region; G62.9 Polyneuropathy, unspecified; N32.89 Other specified disorders of bladder